=== PATIENT | female | born 1985 | race Caucasian/White ===

== ENCOUNTER 2018-12-16 17:47 | Emergency (ER) | payer SELFPAY ==
[~2018-12-16] VITALS: Ht 157.5 cm; Wt 62.0 kg
[2018-12-16 20:41] VITALS: BP 113/63
== END 2018-12-17 00:39 | disposition left against medical advice (07) ==
LOC: ER 17:47
DX: Z53.21 Procedure and treatment not carried out due to patient leaving prior to being seen by health care provider (principal)